=== PATIENT | male | born 1960 | race Hispanic/Latino ===

== ENCOUNTER 2020-05-19 08:08 | Outpatient (CLI) | payer OTHER | END 2020-05-19 08:09 | disposition home or self-care (01) | LOC: CSHCT 08:08 | PROVIDERS: ATTEND Urology | DX: C64.1 Malignant neoplasm of right kidney, except renal pelvis (principal); R59.0 Localized enlarged lymph nodes; R91.1 Solitary pulmonary nodule; Z90.5 Acquired absence of kidney; K76.0 Fatty (change of) liver, not elsewhere classified | CPT/HCPCS: 71260; 74177 ==

== ENCOUNTER 2020-11-29 08:43 | Outpatient (CLI) | payer OTHER | END 2020-11-29 08:44 | disposition home or self-care (01) | LOC: CSHCT 08:43 | PROVIDERS: ATTEND Internal Medicine Hematology & Oncology | DX: C64.1 Malignant neoplasm of right kidney, except renal pelvis (principal); C78.1 Secondary malignant neoplasm of mediastinum; R59.0 Localized enlarged lymph nodes | CPT/HCPCS: 71260; 74177; 82565 ==

== ENCOUNTER 2021-03-28 08:37 | Outpatient (CLI) | payer BC | END 2021-03-28 08:38 | disposition home or self-care (01) | LOC: CSHCT 08:37 | PROVIDERS: ATTEND Internal Medicine Hematology & Oncology | DX: C64.1 Malignant neoplasm of right kidney, except renal pelvis (principal); C78.1 Secondary malignant neoplasm of mediastinum; R59.9 Enlarged lymph nodes, unspecified; Z90.5 Acquired absence of kidney; K76.0 Fatty (change of) liver, not elsewhere classified | CPT/HCPCS: 71260; 74177; 82565 ==

== ENCOUNTER 2021-09-12 08:11 | Outpatient (CLI) | payer BC ==
[2021-09-12] MEDS ORDERED: Iopamidol 370 76% 100 ML VIAL ONE (15:42)
== END 2021-09-12 08:12 | disposition home or self-care (01) ==
LOC: CSHCT 08:11
PROVIDERS: ATTEND Internal Medicine Hematology & Oncology
DX: C64.1 Malignant neoplasm of right kidney, except renal pelvis (principal); C78.1 Secondary malignant neoplasm of mediastinum; R91.8 Other nonspecific abnormal finding of lung field; R59.0 Localized enlarged lymph nodes
CPT/HCPCS: 71260; 74177; 82565; Q9967

== ENCOUNTER 2021-11-14 22:37 | Emergency (ER) | payer BC ==
[2021-11-14] MEDS ORDERED: Ondansetron PF 4 MG/2 ML Vial ONE (23:19)
[2021-11-14] MEDS ORDERED: Lorazepam 2 MG/ML VIAL ONE (23:19)
[2021-11-14] MEDS ORDERED: Dexamethasone 10 MG/ML VIAL ONE (23:19)
[2021-11-14] MEDS ORDERED: Fentanyl 100 MCG/2 ML VIAL ONE (23:20)
[2021-11-14] MEDS ORDERED: Ketorolac Tromethamine 30 MG/ML VIAL IVP SCH (23:30)
== END 2021-11-15 00:10 | disposition home or self-care (01) ==
LOC: CSHERS 22:37
DX: M54.40 Lumbago with sciatica, unspecified side (principal)
CPT/HCPCS: 96374; 96375; J1100; J1885; J2060; J2405; J3010

== ENCOUNTER 2021-11-16 14:26 | Outpatient (CLI) | payer BC ==
[~2021-11-16 14:26] MED LIST: Magnevist 469MG/ML 20 ML VIAL ONE
== END 2021-11-16 14:27 | disposition home or self-care (01) ==
LOC: CSHMRI 14:26
PROVIDERS: ATTEND Physician Assistant
DX: M54.42 Lumbago with sciatica, left side (principal); G95.9 Disease of spinal cord, unspecified; M51.26 Other intervertebral disc displacement, lumbar region; M48.07 Spinal stenosis, lumbosacral region
CPT/HCPCS: 72158; A9579

== ENCOUNTER 2021-11-28 13:30 | Outpatient (CLI) | payer BC ==
[~2021-11-28 13:30] MED LIST changes: +Iopamidol 300 61% 100 ML VIAL FS ONE
== END 2021-11-28 13:31 | disposition home or self-care (01) ==
LOC: CSHCT 13:30
PROVIDERS: ATTEND Internal Medicine Hematology & Oncology
DX: C64.1 Malignant neoplasm of right kidney, except renal pelvis (principal); C78.1 Secondary malignant neoplasm of mediastinum; C71.3 Malignant neoplasm of parietal lobe; R59.0 Localized enlarged lymph nodes; E27.8 Other specified disorders of adrenal gland; K76.0 Fatty (change of) liver, not elsewhere classified; R91.8 Other nonspecific abnormal finding of lung field; G93.6 Cerebral edema; Z90.5 Acquired absence of kidney
CPT/HCPCS: 70553; 71260; 74177; A9579; Q9967

== ENCOUNTER 2021-12-19 14:48 | Emergency (ER) | payer BC ==
[~2021-12-19 14:48] MED LIST changes: -Magnevist 469MG/ML 20 ML VIAL ONE
[2021-12-19] MEDS ORDERED: Ondansetron PF 4 MG/2 ML Vial ONE (15:48)
[2021-12-19] MEDS ORDERED: Morphine 4 MG/ML VIAL ONE (15:48)
[2021-12-19 16:09] LABS: #Monocytes 0.3 10x3/uL (0.0-1.1); #Neutrophils 5.4 10x3/uL (1.5-8.4); %Basophils 0.3 % (0.0-2.0); %Eosinophils 0.2 % (0.0-6.0); %Lymphocytes 5.6 % (18.0-47.0); %Monocytes 4.9 % (0.0-10.0); %Neutrophils 88.7 % (40.0-75.0); Hemoglobin 15.3 g/dL (13.5-17.5); Mean Corpuscular HGB CONC 34.8 g/dL (32.0-36.0); Mean Corpuscular Hemoglobin 32.1 pg (27.0-33.0); Mean Corpuscular Volume 92.4 fl (81.2-95.1); Mean Platelet Volume 9.1 fl (7.4-10.4); Platelet Count 220 10x3/uL (150-450); RBC Distribution Width 14.3 % (11.5-14.5); Red Blood Cell (RBC) Count 4.76 10x6/uL (4.32-5.72); White Blood Cell (WBC) Count 6.1 10x3/uL (3.5-10.5)
[2021-12-19 16:23] LABS: ALT (SGPT) 62 U/L (8-55); AST (SGOT) 30 U/L (5-34); Albumin 4.4 g/dL (3.5-5.0); Alkaline Phosphatase 80 U/L (40-110); Anion Gap 12 mmol/L (10-20); BUN (Urea Nitrogen) 18 mg/dL (8.4-25.7); Bilirubin, Total 0.3 mg/dL (0.2-1.2); Calc. Creatinine Clearance 0 mL/min (70-130); Calcium 9.6 mg/dL (7.8-10.44); Carbon Dioxide 26 mmol/L (22-29); Chloride 103 mmol/L (98-107); Estimated GFR 53; Globulin 2.9 g/dL (2.4-3.5); Glucose 115 mg/dL (70-105); Lipase 18 U/L (8-78); Potassium 4.5 mmol/L (3.5-5.1); Protein, Total 7.3 g/dL (6.0-8.3); Sodium 136 mmol/L (136-145)
[2021-12-19 18:19] LABS: Bilirubin Neg (Negative); Blood, Urine Negative (Negative); Clarity Clear (Clear); Glucose, Urine (Dipstick) Normal (Negative); Ketone, Urine Negative (Negative); Leukocyte Negative (Negative); Nitrite Negative (Negative); Protein, Urine (Dipstick) Negative (Neg-Trace); Specific Gravity, Urine 1.005 (1.005-1.030); Urobilinogen Normal mg/dL (Less than 2)
== END 2021-12-19 18:38 | disposition home or self-care (01) ==
LOC: CSHERS 14:48
DX: E27.8 Other specified disorders of adrenal gland (principal); K86.9 Disease of pancreas, unspecified
CPT/HCPCS: 74177; 80053; 81003; 83690; 85025; 96361; 96374; 96375; J2270; J2405; Q9967

== ENCOUNTER 2022-05-08 07:59 | Outpatient (CLI) | payer BC ==
[2022-05-08] MEDS ORDERED: Iopamidol 300 61% 100 ML VIAL FS ONE (09:27)
== END 2022-05-08 08:00 | disposition home or self-care (01) ==
LOC: CSHCT 07:59
PROVIDERS: ATTEND Internal Medicine Hematology & Oncology
DX: M89.9 Disorder of bone, unspecified (principal); C64.1 Malignant neoplasm of right kidney, except renal pelvis; C78.1 Secondary malignant neoplasm of mediastinum; M89.8X2 Other specified disorders of bone, upper arm
CPT/HCPCS: Q9967

== ENCOUNTER 2022-05-29 09:46 | Outpatient (CLI) | payer BC ==
[2022-05-29] MEDS ORDERED: Magnevist 469MG/ML 20 ML VIAL ONE (09:59)
== END 2022-05-29 09:47 | disposition home or self-care (01) ==
LOC: CSHMRI 09:46
PROVIDERS: ATTEND Radiology Radiation Oncology
DX: C79.31 Secondary malignant neoplasm of brain (principal); C79.49 Secondary malignant neoplasm of other parts of nervous system; C64.9 Malignant neoplasm of unspecified kidney, except renal pelvis; M47.816 Spondylosis without myelopathy or radiculopathy, lumbar region; G93.6 Cerebral edema
CPT/HCPCS: 70553; 72158; 82565

== ENCOUNTER 2022-08-14 09:20 | Outpatient (CLI) | payer BC ==
[2022-08-14] MEDS ORDERED: Magnevist 469MG/ML 20 ML VIAL ONE (10:10)
== END 2022-08-14 09:21 | disposition home or self-care (01) ==
LOC: CSHMRI 09:20
PROVIDERS: ATTEND Radiology Radiation Oncology
DX: C79.31 Secondary malignant neoplasm of brain (principal); C64.9 Malignant neoplasm of unspecified kidney, except renal pelvis
CPT/HCPCS: 70553

== ENCOUNTER 2022-12-26 08:46 | Outpatient (CLI) | payer BC ==
[2022-12-26] MEDS ORDERED: Iopamidol 370 76% 100 ML VIAL ONE (14:12)
== END 2022-12-26 08:47 | disposition home or self-care (01) ==
LOC: CSHCT 08:46
PROVIDERS: ATTEND Internal Medicine Hematology & Oncology
DX: K76.9 Liver disease, unspecified (principal); R93.5 Abnormal findings on diagnostic imaging of other abdominal regions, including retroperitoneum; C64.1 Malignant neoplasm of right kidney, except renal pelvis; Z98.890 Other specified postprocedural states; C79.9 Secondary malignant neoplasm of unspecified site; K76.0 Fatty (change of) liver, not elsewhere classified; K86.9 Disease of pancreas, unspecified; E27.8 Other specified disorders of adrenal gland; N28.9 Disorder of kidney and ureter, unspecified
CPT/HCPCS: 74170; 82565; Q9967

== ENCOUNTER 2023-11-15 12:32 | Outpatient (CLI) | payer BC ==
[~2023-11-15 12:32] MED LIST changes: -Iopamidol 300 61% 100 ML VIAL FS ONE; +Magnevist 469MG/ML 20 ML VIAL ONE
== END 2023-11-15 12:33 | disposition home or self-care (01) ==
LOC: CSHMRI 12:32
PROVIDERS: ATTEND Radiology Radiation Oncology
DX: C79.31 Secondary malignant neoplasm of brain (principal); C79.49 Secondary malignant neoplasm of other parts of nervous system; C64.9 Malignant neoplasm of unspecified kidney, except renal pelvis; Z92.3 Personal history of irradiation; G93.6 Cerebral edema; M47.816 Spondylosis without myelopathy or radiculopathy, lumbar region; M47.817 Spondylosis without myelopathy or radiculopathy, lumbosacral region; G98.8 Other disorders of nervous system
CPT/HCPCS: 36415; 70553; 72158; 76376; 82565

== ENCOUNTER 2023-11-24 11:48 | Emergency (ER) | payer BC ==
[2023-11-24] MEDS ORDERED: Ketorolac Tromethamine 30 MG (1 mL) VIAL ONE (12:35)
[2023-11-24] MEDS ORDERED: Morphine 4 MG/ML VIAL ONE (12:35)
[2023-11-24 13:09] LABS: #Basophils 0.02 10x3/uL (0.0-0.2); #Eosinophils 0.09 10x3/uL (0.0-0.5); #Monocytes 0.34 10x3/uL (0.0-1.1); #Neutrophils 2.87 10x3/uL (1.5-8.4); %Basophils 0.5 % (0.0-2.0); %Eosinophils 2.1 % (0.0-6.0); %Lymphocytes 20.5 % (18.0-47.0); %Monocytes 8.1 % (0.0-10.0); %Neutrophils 68.6 % (40.0-75.0); Hematocrit 41.4 % (38.8-50.0); Hemoglobin 13.5 g/dL (13.5-17.5); Mean Corpuscular HGB CONC 32.6 g/dL (32.0-36.0); Mean Corpuscular Hemoglobin 28.1 pg (27.0-33.0); Mean Corpuscular Volume 86.3 fL (81.2-95.1); Mean Platelet Volume 9.1 fL (7.4-10.4); Platelet Count 206 10x3/uL (150-450); RBC Distribution Width 14.7 % (11.5-14.5); White Blood Cell (WBC) Count 4.2 10x3/uL (3.5-10.5)
[2023-11-24 13:23] LABS: INR-International Normal Ratio 1.1; PTT 35.6 sec (22.0-33.0); Prothrombin Time 11.4 sec (9.5-12.1)
[2023-11-24 13:24] LABS: ALT (SGPT) 42 U/L (8-55); AST (SGOT) 55 U/L (5-34); Albumin 3.9 g/dL (3.4-4.8); Alkaline Phosphatase 213 U/L (40-110); Anion Gap 16 mmol/L (10-20); BUN (Urea Nitrogen) 11 mg/dL (8.4-25.7); Bilirubin, Total 0.4 mg/dL (0.2-1.2); Calc. Creatinine Clearance 0 mL/min (70-130); Calcium 10.4 mg/dL (7.8-10.44); Carbon Dioxide 23 mmol/L (23-31); Chloride 105 mmol/L (98-107); Estimated GFR 77; Globulin 4.1 g/dL (2.4-3.5); Glucose 99 mg/dL (80-115); Sodium 140 mmol/L (136-145)
[2023-11-24 13:28] LABS: Troponin I Less than 0.010 ng/mL (< 0.028)
== END 2023-11-24 14:35 | disposition home or self-care (01) ==
LOC: CSHERS 11:48
DX: K02.9 Dental caries, unspecified (principal); R68.84 Jaw pain; I10 Essential (primary) hypertension; Z55.6 Problems related to health literacy
CPT/HCPCS: 70486; 80053; 82550; 84484; 85025; 85610; 85730; 96374; 96375; J1885; J2272